=== PATIENT | male | born 1985 | race Caucasian/White ===

== ENCOUNTER 2017-04-09 12:30 | Emergency (ER) | payer MEDICAID ==
[~2017-04-09] VITALS: Ht 167.6 cm; Wt 64.0 kg
[2017-04-09 12:33] VITALS: Ht 167.6 cm; Wt 64.0 kg
[2017-04-09] MEDS ORDERED: KETOROLAC 30 MG INJ IM STA (13:00)
[2017-04-09] MEDS ORDERED: DIAZEPAM 2 MG TAB PO ONE (13:00)
[2017-04-09] MEDS ORDERED: NAPR-260 PO (14:00)
[2017-04-09] MEDS ORDERED: CYCL-319 PO (14:01)
--- NOTE | 2017-04-09 14:41 | ERD ---
ER Documentation Chief Complaint Date/Time DATE: 04/09/17 TIME: 14:39 Chief Complaint Complains of back pain x 3 days HPI Patient is a 31-year-old male with no past medical history who presents to the ED with back pain 1 day. Patient states that he does warehouse shipping supervisor for a company and has been lifting a lot of heavy boxes. He states that yesterday he sat in his car and developed pain to the mid back. He states it as a spasm sharp sensation. He states that the pain got better in the last day however today he developed more pain in his mid back. He states that it is better when he lays down. Denies radiation of pain. Denies bowel or bladder incontinence. Denies trauma or falls. Denies headache or dizziness. Has not taken any medication for his symptoms. No other complaints. ROS All systems reviewed and are negative except as per history of present illness. Medications Home Meds Active Scripts Cyclobenzaprine Hcl* (Cyclobenzaprine Hcl*) 10 Mg Tablet, 10 MG PO TID, #15 TAB Prov:AZALEA KIRBY PA-C 04/09/17 Naproxen* (Naprosyn*) 500 Mg Tablet, 500 MG PO BID Y for PAIN AND/OR INFLAMMATION, #30 TAB Prov:AZALEA KIRBY PA-C 04/09/17 Allergies Allergies: Coded Allergies: No Known Allergy (Unverified , 04/09/17) PMhx/Soc History of Surgery: No Anesthesia Reaction: No Hx Neurological Disorder: No Hx Respiratory Disorders: No Hx Cardiac Disorders: No Hx Psychiatric Problems: No Hx Miscellaneous Medical Probl: No Hx Alcohol Use: No Hx Substance Use: No Hx Tobacco Use: No Smoking Status: Never smoker FmHx Family History: No coronary disease, No diabetes, No other Physical Exam Vitals Vital Signs Date Time Temp Pulse Resp B/P Pulse Ox O2 Delivery O2 Flow Rate FiO2 04/09/17 12:33 98.7 69 20 127/81 99 Physical Exam GENERAL: Well-developed, well-nourished male. Appears in no acute distress. HEAD: Normocephalic, atraumatic. EYES: Pupils are equally reactive bilaterally. EOMs grossly intact. No conjunctival erythema. ENT: Moist mucous membranes. No uvula deviation. No kissing tonsils. No exudates. NECK: Supple. No lymphadenopathy or thyromegaly. No meningismus. negative kernig. negative brudinski. LUNG: Clear to auscultation bilaterally. No rhonchi, wheezing, rales or coarse breath sounds. HEART: Regular rate and rhythm. No murmurs, rubs or gallops. ABDOMEN: No scars, ecchymosis or rashes noted. Soft, nontender, and nondistended. Positive bowel sounds in all four quadrants. No rebound tenderness , no guarding. (-) McBurneys point tenderness. No CVA tenderness. BACK: No midline tenderness. No spinal or paraspinal tenderness. No step-offs or deformities. No open wounds or lacerations or masses. Extremities: Equal pulses bilaterally. No peripheral clubbing, cyanosis or edema. No unilateral leg swelling. NEUROLOGIC: Alert and oriented. Moving all four extremities. 5/5 strength in all extremities. Normal speech. Steady gait. SKIN: Normal color. Warm and dry. No rashes or lesions. Capillary refill < 2 seconds Results 24 hrs Current Medications Medications (Trade) Dose Ordered Sig/Anna Route PRN Reason Start Time Stop Time Status Last Admin Dose Admin Ketorolac Tromethamine (Toradol) 30 mg ONCE STAT IM 04/09/17 13:00 04/09/17 13:02 DC 04/09/17 13:20 Diazepam (Valium) 2 mg ONCE ONCE PO 04/09/17 13:00 04/09/17 13:02 DC 04/09/17 13:20 Procedures/MDM ER COURSE: I kept the patient and/or family informed of laboratory and diagnostic imaging results throughout the emergency room course. MEDICAL DECISION MAKING: This is a 31-year-old male who presents with back pain 1 day. Vital signs were reviewed. Patient is afebrile. Patient is not hypoxic. She is not toxic or ill- appearing. Patient likely has muscle strain versus sprain. Low suspicion for fracture dislocation I do not think x-rays are necessary at this time as there was no trauma involved and he did not have tenderness on examination. Low suspicion for cauda equine syndrome, spinal epidural hematoma, spinal epidural abscess, osteomyelitis, fracture, aortic dissection, AAA, pyelonephritis, nephrolithiasis, septic stone, obstructed stone. Patient given Toradol and Valium in the ED. Tolerated well with no adverse reaction and had improvement in symptoms. DISCHARGE: At this time, patient is stable for discharge and outpatient management with no new complaints during the ER course. Patient was sent home with Naprosyn and Flexeril and a note for work. Patient will be discharged home with instructions to recheck for new or worsening symptoms such as fever, nausea, weakness, LOC and to follow up with primary care in the next 1-2 days. Patient was advised to return to the ER for any new or worsening symptoms. Plan was discussed and patient and/or family understands and agrees. Home instructions were given. Departure Diagnosis: Primary Impression: Back pain Back pain location: thoracic back pain Chronicity: acute Back pain laterality: left Qualified Code: M54.6 - Acute left-sided thoracic back pain Condition: Stable Patient Instructions: Back Pain (Acute Or Chronic) Referrals: COMM[facility] YOU HAVE RECEIVED A MEDICAL SCREENING EXAM AND THE RESULTS INDICATE THAT YOU DO NOT HAVE A CONDITION THAT REQUIRES URGENT TREATMENT IN THE EMERGENCY DEPARTMENT. FURTHER EVALUATION AND TREATMENT OF YOUR CONDITION CAN WAIT UNTIL YOU ARE SEEN IN YOUR DOCTORS OFFICE WITHIN THE NEXT 1-2 DAYS. IT IS YOUR RESPONSIBILITY TO MAKE AN APPOINTMENT FOR FOLOW-UP CARE. IF YOU HAVE A PRIMARY DOCTOR --you should call your primary doctor and schedule an appointment IF YOU DO NOT HAVE A PRIMARY DOCTOR YOU CAN CALL OUR PHYSICIAN REFERRAL HOTLINE AT IF YOU CAN NOT AFFORD TO SEE A PHYSICIAN YOU CAN CHOSE FROM THE FOLLOWING [facility] [address] [facility] [address] [facility] [facility] [address] [facility] [facility] [address] [facility]. [facility] [address]. [facility]. [address] Additional Instructions: Call your primary care doctor TOMORROW for an appointment during the next 1-2 days.See the doctor sooner or return here if your condition worsens before your appointment time. AZALEA KIRBY PA-C Apr 09, 2017 14:41
== END 2017-04-09 14:18 | disposition home or self-care (01) ==
LOC: FTE 12:30
DX: M54.6 Pain in thoracic spine (principal)
CPT/HCPCS: 96372; J1885; Z7502; Z7610

== ENCOUNTER 2018-11-10 16:09 | Emergency (ER) | payer SELFPAY ==
[~2018-11-10] VITALS: Ht 170.2 cm; Wt 73.0 kg
[~2018-11-10 16:09] MED LIST: CYCL10TA7 PO; NAPR-985 PO
[2018-11-10 16:24] VITALS: BP 128/73; PULSE 75; RESP 18; Ht 170.2 cm; Wt 73.0 kg
== END 2018-11-10 19:02 | disposition left against medical advice (07) ==
LOC: FTE 16:09
DX: Z53.21 Procedure and treatment not carried out due to patient leaving prior to being seen by health care provider (principal)